=== PATIENT | male | born 1995 | race Native Hawaiian/Other Pacific Islander ===

== ENCOUNTER 2023-01-23 14:45 | Emergency (ER) | payer MEDICAID ==
[~2023-01-23] VITALS: Ht 175.3 cm; Wt 68.2 kg
[2023-01-23 15:07] VITALS: TEMP 98.5
[2023-01-23] MEDS ORDERED: ACETAMINOPHEN/CODEINE 300-30 MG TABLET PO ONE (15:30)
[2023-01-23] MEDS ORDERED: IBUPROFEN 600 MG TABLET PO ONE (15:30)
[2023-01-23] MEDS ORDERED: ACET-2080 PO (16:08)
[2023-01-23] MEDS ORDERED: IBUP-1554 PO (16:08)
[2023-01-23 17:00] VITALS: BP 139/78; PULSE 90; RESP 18
== END 2023-01-23 17:20 | disposition home or self-care (01) ==
LOC: EMS 14:57
DX: S93.401A Sprain of unspecified ligament of right ankle, initial encounter (principal); X50.1XXA Overexertion from prolonged static or awkward postures, initial encounter; Y93.89 Activity, other specified; Y92.89 Other specified places as the place of occurrence of the external cause; Y99.8 Other external cause status
CPT/HCPCS: 99283

== ENCOUNTER 2023-08-29 12:57 | Emergency (ER) | payer SELFPAY ==
[~2023-08-29] VITALS: Ht 177.8 cm; Wt 75.0 kg
[~2023-08-29 12:57] MED LIST: ACET-2080 PO; IBUP-1554 PO
[2023-08-29 13:53] LABS: BASOPHILS % (AUTO) 0.6 % (0.0-2.0); EOSINOPHILS % (AUTO) 1.8 % (1.0-6.0); HEMATOCRIT 43.4 % (41-53); HEMOGLOBIN 14.5 g/dL (13.5-17.5); LYMPHOCYTES % (AUTO) 30.7 % (22.0-44.0); MEAN CORPUSCULAR HEMOGLOBIN 28.9 pg (26.0-34.0); MEAN CORPUSCULAR HGB CONC 33.4 G/dL (31.0-37.0); MEAN CORPUSCULAR VOLUME 87 fL (80-100); MONOCYTES # (AUTO) 0.5 K/uL (0.1-1.0); MONOCYTES % (AUTO) 6.9 % (2.0-9.0); NEUTROPHILS # (AUTO) 3.9 K/uL (1.8-7.7); PLATELET COUNT (AUTO) 294 K/uL (150-450); RED BLOOD CELL COUNT(AUTO) 5.01 MIL/uL (4.50-5.90); RED CELL DISTRIBUTION WIDTH 13.5 % (11.5-14.5); WHITE BLOOD COUNT (AUTO) 6.6 K/uL (4.5-11.0)
[2023-08-29 14:05] LABS: ANION GAP 5 mmol/L (8-16); CALCIUM, TOTAL 8.9 mg/dL (8.8-10.5); CARBON DIOXIDE 32 mmol/L (22-29); CHLORIDE 102 mmol/L (98-107); CREATININE 1.04 mg/dL (0.60-1.30); GLOMERULAR FILTR. RATE CALC > 60 mL/min (>60); GLUCOSE,RANDOM 101 mg/dL (70-110); POTASSIUM 4.2 mmol/L (3.5-5.1); SODIUM SERUM 139 mmol/L (136-145); UREA NITROGEN, BLOOD 12 mg/dL (7-18)
[2023-08-29 14:08] LABS: ALANINE AMINOTRANSFERASE 23 U/L (12-78); ALBUMIN 4.1 g/dL (3.4-5.0); ALKALINE PHOSPHATASE 64 U/L (46-116); ASPARTATE AMINOTRANSFERASE 18 U/L (15-37); BILIRUBIN,TOTAL 0.5 mg/dL (0.1-1.0); LIPASE 19 U/L (16-77); TOTAL PROTEIN, SERUM 7.8 g/dL (6.4-8.2)
[2023-08-29] MEDS ORDERED: IOHEXOL 350 MG/ML 100 ML VIAL ONE (15:02)
[2023-08-29] MEDS ORDERED: SODIUM CHLORIDE 0.9% 100 ML ONE (15:02)
[2023-08-29 15:21] VITALS: TEMP 98.2
[2023-08-29] MEDS: MORPHINE SULFATE 2 MG/ML SYRINGE IVP ONE (16:33)
[2023-08-29] MEDS: SODIUM CHLORIDE 0.9% 1,000 ML IV ONE (16:35)
[2023-08-29] MEDS: MAG HYDROX/ALUMINUM HYD/SIMETH 30 ML SUSPENSION UDCUP PO ONE (16:36)
[2023-08-29] MEDS: KETOROLAC TROMETHAMINE 30 MG/ML VIAL IVP ONE (16:36)
[2023-08-29 16:54] LABS: APPEARANCE,URINE CLEAR (CLEAR); BILIRUBIN,URINE NEGATIVE (NEGATIVE); COLOR,URINE COLORLESS (YELLOW); GLUCOSE, URINE (UA) NEGATIVE (NEGATIVE); KETONES,URINE NEGATIVE (NEGATIVE); LEUKOCYTE ESTERASE ,URINE NEGATIVE (NEGATIVE); NITRATE,URINE NEGATIVE (NEGATIVE); OCCULT BLOOD,URINE NEGATIVE (NEGATIVE); PROTEIN,URINE NEGATIVE (NEGATIVE); SPECIFIC GRAVITIY, URINE 1.009 (1.003-1.030); UROBILINOGEN,URINE <=1.0 mg/dL (<=1.0)
[2023-08-29] MEDS ORDERED: ACET-3385 PO (18:21)
[2023-08-29 18:39] VITALS: BP 129/80; PULSE 78; RESP 18
== END 2023-08-29 18:41 | disposition home or self-care (01) ==
LOC: EMS 12:57
DX: R10.31 Right lower quadrant pain (principal); R11.2 Nausea with vomiting, unspecified; F17.210 Nicotine dependence, cigarettes, uncomplicated; F12.90 Cannabis use, unspecified, uncomplicated; F10.90 Alcohol use, unspecified, uncomplicated; Y90.9 Presence of alcohol in blood, level not specified
CPT/HCPCS: 99285; 74177; 96374; 96361; 96375; 80053; 81003; 83690; 85025; 36415; J1885; J2270; Q9967; J7030; J7050